=== PATIENT | male | born 2000 | race African-American/Black ===

== ENCOUNTER 2022-01-31 02:01 | Inpatient (IN) ==
[2022-01-31] MEDS ORDERED: ENOXAPARIN 40 MG/0.4 ML SYRINGE SUBCUT SCH (03:30)
[2022-01-31 05:38] LABS: Basophils # 0.1 10*3/uL (0.0-0.2); Basophils % 0.6 % (0.0-0.8); Eosinophils # 0.1 10*3/uL (0.0-0.87); Eosinophils % 0.5 % (0.00-10.9); Hematocrit 37.9 VOL% (42.0-52.0); Hemoglobin 11.9 GM/DL (14.0-18.0); Immature Granulocytes % 0.6 %; Immature Granulocytes Absolute 0.07 #; Lymphocytes # 2.5 10*3/uL (1.4-4.0); Mean Corpuscular HGB Conc 31.4 GM/DL (32-36); Mean Corpuscular Volume 77.7 FL (87-102); Mean Platelet Volume 11.3 FL (9.6-12.0); Monocytes % 8.2 % (1.7-12.7); Neutrophils % 70.1 % (38.7-73.9); Platelet Count 334 T/CUMM (130-400); Red Blood Count 4.88 MC/CUMM (3.8-5.5); Red Cell Distribution Width 15.9 % (9.3-17.3); White Blood Count 12.7 T/CUMM (4-12)
[2022-01-31 06:04] LABS: Albumin 2.5 G/DL (3.4-5.0); Bilirubin,Total 1.3 MG/DL (0.20-1.00); Calcium 8.3 MG/DL (8.5-10.1); Osmolality,Calculated 279.5 MOS/KG (273-304); Potassium 3.6 MMOL/L (3.5-5.1); Thyroid Stimulating Hormone 2.19 uIU/ml (0.358-3.74); Total Protein 6.1 G/DL (6.4-8.2)
[2022-01-31] MEDS ORDERED: ENOXAPARIN 100 MG/ML SYRINGE SUBCUT ONE (06:30)
[2022-01-31] MEDS ORDERED: POTASSIUM CHLORIDE 20 MEQ TABLET PO ONE (08:27)
[2022-01-31] MEDS ORDERED: carvediloL 3.125 MG TABLET PO SCH (09:00)
[2022-01-31] MEDS ORDERED: lisinopriL 5 MG TABLET PO SCH (09:00)
[2022-01-31] MEDS: SPIRONOLACTONE 25 MG TABLET PO SCH (09:19)
[2022-01-31] MEDS: METOPROLOL SUCCINATE XL 25 MG TABLET PO SCH (09:20)
[2022-01-31] MEDS: DAPAGLIFLOZIN 10 MG TABLET PO SCH (09:20)
[2022-01-31] MEDS: FUROSEMIDE 40 MG/4 ML VIAL IV SCH ×2 (09:22→16:39)
[2022-01-31 19:02] LABS: Bacteria,Urine Occasional /HPF (Few); RBC,Urine 2 /HPF (0-4)
[2022-01-31 19:07] LABS: Glucose,Urine (UA) 500 mg/dL (Negative); Ketones,Urine Negative (Negative); Nitrite,Urine Negative (Negative); Protein,Urine Negative (Negative); Urine Appearance Clear (Clear); Urine Color Yellow (Yellow)
[2022-01-31 19:08] LABS: Bilirubin,Urine Negative (Negative); Blood, Urine Negative (Negative); Urine Urobilinogen < 2.0 eU/dL (<2.0)
[2022-01-31] MEDS: APIXABAN 5 MG TABLET PO SCH (21:31)
[2022-02-01 04:38] LABS: Basophils # 0.1 10*3/uL (0.0-0.2); Basophils % 0.8 % (0.0-0.8); Eosinophils # 0.1 10*3/uL (0.0-0.87); Eosinophils % 1.1 % (0.00-10.9); Hematocrit 36.8 VOL% (42.0-52.0); Hemoglobin 11.6 GM/DL (14.0-18.0); Immature Granulocytes % 0.3 %; Immature Granulocytes Absolute 0.04 #; Lymphocytes # 2.9 10*3/uL (1.4-4.0); Lymphocytes % 23.2 % (21.2-54.2); Mean Corpuscular HGB Conc 31.5 GM/DL (32-36); Mean Corpuscular Volume 78.1 FL (87-102); Mean Platelet Volume 11.7 FL (9.6-12.0); Monocytes # 1.2 10*3/uL (0.11-0.8); Monocytes % 9.7 % (1.7-12.7); Neutrophils % 64.9 % (38.7-73.9); Platelet Count 325 T/CUMM (130-400); Red Blood Count 4.71 MC/CUMM (3.8-5.5); Red Cell Distribution Width 15.9 % (9.3-17.3); White Blood Count 12.3 T/CUMM (4-12)
[2022-02-01 04:59] LABS: Albumin 2.4 G/DL (3.4-5.0); Bilirubin,Total 1.2 MG/DL (0.20-1.00); Calcium 8.3 MG/DL (8.5-10.1); Potassium 3.6 MMOL/L (3.5-5.1); Total Protein 5.7 G/DL (6.4-8.2)
[2022-02-01 05:03] LABS: % Iron Saturation 4.9 % (18-50); Ferritin 23.6 ng/mL (26-388)
[2022-02-01 05:05] LABS: Risk Ratio 5.37; VLDL Cholesterol 12.8 MG/DL
[2022-02-01] MEDS: FUROSEMIDE 40 MG/4 ML VIAL IV SCH ×2 (09:27→16:41)
[2022-02-01] MEDS: APIXABAN 5 MG TABLET PO SCH ×2 (09:27→21:20)
[2022-02-01] MEDS: SPIRONOLACTONE 25 MG TABLET PO SCH (09:27)
[2022-02-01] MEDS: DAPAGLIFLOZIN 10 MG TABLET PO SCH (09:27)
[2022-02-01] MEDS: LOSARTAN 25 MG TABLET PO SCH (09:27)
[2022-02-01] MEDS: METOPROLOL SUCCINATE XL 25 MG TABLET PO SCH (09:27)
[2022-02-01 12:38] LABS: Barbiturates Screen,Urine Negative (Negative); Benzodiazepines Screen,Urine Negative (Negative); Cannabinoid Screen,Urine Negative (Negative); Opiate Screen,Urine Negative (Negative); Phencyclidine Screen,Urine Negative (Negative)
[2022-02-02 05:18] LABS: Basophils # 0.1 10*3/uL (0.0-0.2); Basophils % 0.8 % (0.0-0.8); Eosinophils # 0.2 10*3/uL (0.0-0.87); Eosinophils % 1.4 % (0.00-10.9); Hematocrit 36.5 VOL% (42.0-52.0); Hemoglobin 11.5 GM/DL (14.0-18.0); Immature Granulocytes % 0.4 %; Immature Granulocytes Absolute 0.05 #; Lymphocytes # 2.6 10*3/uL (1.4-4.0); Lymphocytes % 23.5 % (21.2-54.2); Mean Corpuscular HGB Conc 31.5 GM/DL (32-36); Mean Platelet Volume 11.6 FL (9.6-12.0); Monocytes # 1.1 10*3/uL (0.11-0.8); Monocytes % 9.4 % (1.7-12.7); Neutrophils % 64.5 % (38.7-73.9); Platelet Count 330 T/CUMM (130-400); Red Blood Count 4.68 MC/CUMM (3.8-5.5); Red Cell Distribution Width 15.9 % (9.3-17.3); White Blood Count 11.2 T/CUMM (4-12)
[2022-02-02 05:37] LABS: Albumin 2.4 G/DL (3.4-5.0); Bilirubin,Total 1.1 MG/DL (0.20-1.00); Calcium 8.3 MG/DL (8.5-10.1); Osmolality,Calculated 276.7 MOS/KG (273-304); Potassium 3.6 MMOL/L (3.5-5.1); Total Protein 5.8 G/DL (6.4-8.2)
[2022-02-02] MEDS: APIXABAN 5 MG TABLET PO SCH (08:05)
[2022-02-02] MEDS: FUROSEMIDE 40 MG/4 ML VIAL IV SCH (09:00)
[2022-02-02] MEDS: METOPROLOL SUCCINATE XL 25 MG TABLET PO SCH (09:01)
[2022-02-02] MEDS: DAPAGLIFLOZIN 10 MG TABLET PO SCH (09:01)
[2022-02-02] MEDS: LOSARTAN 25 MG TABLET PO SCH (09:01)
[2022-02-02] MEDS: SPIRONOLACTONE 25 MG TABLET PO SCH (09:01)
[2022-02-02] MEDS ORDERED: POTASSIUM CHLORIDE 20 MEQ TABLET PO ONE (10:08)
[2022-02-02] MEDS ORDERED: DIAZEPAM 5 MG TABLET PO ONE (11:30)
[2022-02-02] MEDS ORDERED: diphenhydrAMINE CAP 50 MG CAPSULE PO ONE (11:30)
[2022-02-02] MEDS ORDERED: HYDROmorphone 1 MG/1 ML SYRINGE ONE (13:42)
[2022-02-02] MEDS ORDERED: MIDAZOLAM 2 MG/2 ML VIAL ONE (13:42)
[2022-02-02] MEDS: FUROSEMIDE 40 MG/4 ML VIAL IV ONE ×2 (15:36→19:31)
[2022-02-02] MEDS ORDERED: FUROSEMIDE 40 MG TABLET PO SCH (16:00)
[2022-02-03 06:09] LABS: Basophils # 0.1 10*3/uL (0.0-0.2); Basophils % 0.7 % (0.0-0.8); Eosinophils # 0.1 10*3/uL (0.0-0.87); Eosinophils % 0.9 % (0.00-10.9); Hematocrit 38.2 VOL% (42.0-52.0); Hemoglobin 11.9 GM/DL (14.0-18.0); Immature Granulocytes % 0.3 %; Immature Granulocytes Absolute 0.03 #; Lymphocytes # 2.5 10*3/uL (1.4-4.0); Lymphocytes % 24.4 % (21.2-54.2); Mean Corpuscular HGB Conc 31.2 GM/DL (32-36); Mean Corpuscular Volume 78.6 FL (87-102); Mean Platelet Volume 11.7 FL (9.6-12.0); Monocytes % 9.8 % (1.7-12.7); Neutrophils % 63.9 % (38.7-73.9); Platelet Count 332 T/CUMM (130-400); Red Blood Count 4.86 MC/CUMM (3.8-5.5); Red Cell Distribution Width 15.9 % (9.3-17.3); White Blood Count 10.1 T/CUMM (4-12)
[2022-02-03 06:31] LABS: Calcium 8.6 MG/DL (8.5-10.1); Osmolality,Calculated 274.8 MOS/KG (273-304); Potassium 3.9 MMOL/L (3.5-5.1)
[2022-02-03 06:33] LABS: Albumin 2.4 G/DL (3.4-5.0); Bilirubin,Total 1.2 MG/DL (0.20-1.00); Calcium 8.7 MG/DL (8.5-10.1); Osmolality,Calculated 274.8 MOS/KG (273-304); Total Protein 6.1 G/DL (6.4-8.2)
[2022-02-03] MEDS ORDERED: SACUBITRIL/VALSARTAN 49-51 MG TABLET PO SCH (09:00)
[2022-02-03] MEDS ORDERED: TORSEMIDE 20 MG TABLET PO SCH (09:00)
[2022-02-03] MEDS ORDERED: ASPIRIN EC 81 MG TABLET PO SCH (09:00)
[2022-02-03] MEDS: DAPAGLIFLOZIN 10 MG TABLET PO SCH (09:26)
[2022-02-03] MEDS: METOPROLOL SUCCINATE XL 25 MG TABLET PO SCH (09:27)
[2022-02-03] MEDS: SPIRONOLACTONE 25 MG TABLET PO SCH (09:27)
[2022-02-03 10:50] VITALS: BP 115/76
== END 2022-02-03 11:33 | disposition home or self-care (01) | DRG 286 ==
LOC: N.TELES 03:08 → SUATTDRO 03:08
PROVIDERS: ADMIT Internal Medicine; ATTEND Internal Medicine Geriatric Medicine